=== PATIENT | female | born 1960 | race Caucasian/White ===

== ENCOUNTER 2023-08-25 22:05 | Inpatient (IN) | payer OTHER, SELFPAY ==
[2023-08-25] VITALS (17 sets, daily range): BP systolic 94–141; BP diastolic 46–97; PULSE 70–92; BMI 26.6
[2023-08-25] MEDS: MORPHINE SULFATE 4 MG IV (16:47)
[2023-08-25] MEDS: ZOFRAN 4 MG IV (16:47)
[2023-08-25 16:54] LABS: % Basophils 0.3 % (0-2); % Eosinophils 0.1 % (0-6); % Immature Granulocytes 0.5 % (0-0.5); % Lymphocytes 6.5 % (20.5-51.1); % Monocytes 6.2 % (1.7-9.3); % Neutrophils 86.4 % (42.2-75.2); Absolute Basophils 0.1 10^3/uL (0-0.2); Absolute Immature Granulocytes 0.1 10^3/uL (0-0.05); Absolute Lymphocytes 1.2 10^3/uL (1.2-3.4); Absolute Monocytes 1.2 10^3/uL (0.1-0.6); Absolute Neutrophils 16.2 10^3/uL (1.4-6.5); Hematocrit 45.5 % (37.0-47.0); Hemoglobin 15.8 g/dL (12.0-16.0); Mean Corp Hgb Conc. 34.7 g/dL (33.0-37.0); Mean Corpuscular Hgb 31.7 pg (27.0-31.0); Mean Corpuscular Volume 91.4 fL (81.0-99.0); Mean Platelet Volume 9.8 fL (7.4-10.4); Nucleated Red Blood Cells % 0 %; Platelet Count 314 10^3/uL (130-400); Red Blood Cell Count 4.98 10^6/uL (4.20-5.40); Red Cell Dist. Width 12.7 % (11.5-14.5); White Blood Cell Count 18.7 10^3/uL (4.8-10.8)
--- NOTE | 2023-08-25 17:03 | ED.GENMED ---
History of Present Illness
General
Chief Complaint: Chest Pain
Source: patient and spouse
Exam Limitations: none
Time Seen by Provider: 08/25/23 16:21
Travel History
Have you had any contact with someone who has COVID-19?: No
Do you have any symptoms of coronavirus? Fever > 100 degrees, chills, cough, shortness of breath, sore throat, loss of taste or smell, muscle aches, or headache?: No
History of Present Illness
History of Present Illness:
63-year-old female who presents with severe chest pain. The patient states it is sharp and in the middle and radiates to her back and neck. The pain is making her take shallow breaths as it hurts worse when she takes a deep breath. The pain
suddenly started at noon. Patient states she feels short of breath only because she cannot take a deep breath without severe pain. Patient has no history of coronary disease. She is a former smoker. She has a history of hypertension
hyperlipidemia. She had eaten food in the morning but had not eaten anything within a few hours of the onset of her pain. She then drove to someone's house and had made some food but she had had severe pain. No vomiting, did recently travel to
[place]. No leg swelling.
Past History
Past History
ED Past Medical History: HTN and Hypercholesterolemia
ED Past Surgical History: Gynecological
Social History
Tobacco: Former smoker
Phy Exam
Physical Exam
Physical Exam:
CONSTITUTIONAL Patient alert and oriented to person, place and time. Moderate pain distress. Vital signs reviewed.
HEAD atraumatic, normocephalic.
EYES eyelids normal to inspection, Extraocular muscles intact, Conjunctiva normal, Sclera normal.
NECK normal range of motion, Trachea midline, no jugular venous distention.
RESPIRATORY CHEST No respiratory distress noted, Chest expansion equal, Bilateral breath sounds clear. Splinting noted during exam. No crepitus.
CARDIOVASCULAR regular rate and rhythm, Heart sounds normal.
ABDOMEN abdomen nontender, Bowel sounds normal. No distention.
BACK normal inspection, no obvious deformities
UPPER EXTREMITY range of motion normal, Motor strength normal, no cyanosis, no edema.
LOWER EXTREMITY range of motion normal, Motor strength normal, no cyanosis, no edema.
NEURO Speech normal, No focal motor deficits, [place] coma scale 15, Memory normal, Cranial Nerves intact to screening exam.
SKIN skin warm, dry, and normal in color.
PSYCHIATRIC patient oriented to person place and time, Normal affect.
Scores
Heart Score for Chest Pain Patients
STEMI patient?: No
History: Slightly or Non-Suspicious
ECG: Nonspecific Repolarization
Age: >45 - <65 years
Risk Factors: 1 or 2 Risk Factors
Troponin: </= Normal Limit
Heart Score for Chest Pain Patients: 3
Heart Score Risk: 2.5% MACE over next 6 weeks
Course
Orders/Labs/Results
Orders:
Orders
08/25/23 16:19
Electrocardiogram (*1) Urgent
Reason for Study: Chest Pain
Cardiac Monitoring- Treatment ONCE
EKG- Treatment ONCE
IV Insert/Care/Rem.- Treatment PRN
O2 Therapy [RESP] Urgent
Titrate/Wean O2 to maintain O2 sat greater than (%): 90
Special Instructions: Maintain sats >/=90%
Pulse Ox/spot Check [RESP] Urgent
Quantity: 1
Special Instructions: ON ROOM AIR
08/25/23 16:25
Morphine Sulfate 4 mg .ROUTE .STK-MED ONE
Ondansetron Injectable [Zofran] 4 mg .ROUTE .STK-MED ONE
08/25/23 16:27
CR Chest Portable - 1 View Urgent
Comment:
Reason For Exam: cp
Reason Study Needs to be Portable: Patient Unstable
08/25/23 16:28
Complete Blood Count/With Diff Urgent
Comprehensive Metabolic Panel Urgent
Lipase Urgent
Comment: ADD ON
Troponin I Urgent
08/25/23 16:44
Morphine Sulfate 4 mg IV NOW STA
Ondansetron Injectable [Zofran] 4 mg IV NOW STA
08/25/23 16:45
Add On- LAB Stat
Tests Added?: lipase
CT Angio Chest/Abd W/Wo Iv Contrast [CT Chest/abd Angio W/wo Iv Con] Stat
Comment:
Reason For Exam: cp to back and neck
08/25/23 17:50
Ketorolac [Toradol] 15 mg IV NOW STA
Sucralfate Suspension [Carafate Suspension] 1 gm PO NOW STA
08/25/23 19:32
NT-proBNP Stat
Comment: ADD ON
Troponin I Stat
08/25/23 19:36
Electrocardiogram (*1) Urgent
Reason for Study: Chest Pain
EKG- Treatment ONCE
08/25/23 19:42
Add On- LAB Urgent
Tests Added?: pro bnp
08/25/23 19:47
Ipratropium/Albuterol Sulfate [Duoneb] 3 ml .ROUTE .ST-MED ONE
08/25/23 19:49
Dexamethasone Sod Phosphate [Decadron] 10 mg IV NOW STA
Ipratropium/Albuterol Sulfate [Duoneb] 3 ml INH R NOW STA
08/25/23 20:53
Admit/Transfer Patient As Directed
Co-Sign Provider:
Level of Care: Inpatient admission
Assign to:: Telemetry
Physician / Group: Gómez
Diagnosis: Pericarditis / COPD Exac
Reason for Telemetry: Chest Pain syndromes
Date to Stop Telemetry: 08/27/23
Time to Stop Telemetry: 11:00
Reason for Hospitalization: Hypoxemia, COPD, Pericarditis
Expected length of stay greater than two midnights?: Yes
ELOS- Estimated Length of Stay in days: 3
I certify the patient meets the requirements for IP care: Yes
08/25/23 20:54
Code Status As Directed
Resuscitation Status: Full Code
08/25/23 21:16
COVID-19 Antigen Urgent
Source: Nasal Swab
Influenza A+B Rapid Molecular Urgent
DEBBI Source: Nasal Swab
Specimen Description:
08/25/23 22:43
0.9% Sodium Chloride 1000 ml [Nss] 1,000 ml IV 100 mls/hr
Acetaminophen [Tylenol] 650 mg PO Q4HPRN PRN
Albuterol Nebs [Ventolin Nebules] 2.5 mg INH R Q4HPRN PRN
Dexamethasone Sod Phosphate [Decadron] 4 mg IV Q8H
Ketorolac [Toradol] 15 mg IV Q6HPRN PRN
Ondansetron Injectable [Zofran] 4 mg IV Q6HPRN PRN
08/25/23 22:43
Echo 2D MMode Doppler [Echo 2D MMode Color/Doppler] Routine
Reason for Study: Pericarditis
Activity As Directed
Activity Level: Ambulate
With Assistance
EKG with chest pain [ECG as needed] As Directed
ECG as needed for:: Chest Pain
I/O [Intake/ Output] As Directed
Frequency: Per unit guidelines
Orthostatic Vital Signs As Directed
Orthostatic VS Frequency: BID
Pneumatic Compression Sleeves As Directed
Type: Knee high
Vital Signs As Directed
Frequency: Per unit guidelines
Weight As Directed
Frequency: Daily
Oxygen Therapy [O2 Therapy] [RESP] Routine
Titrate/Wean O2 to maintain O2 sat greater than (%): 94
Rx Incentive Spirometry [RESP] Routine
Frequency: q1h while awake
DX Deep Vein Thrombosis Video Routine
08/25/23 23:19
CRP [C-Reactive Protein] Routine
ESR [Erythrocyte Sed Rate] Routine
TSH Reflex To Free T4 Routine
Troponin I Q6H
08/26/23 05:12
Basic Metabolic Panel IN AM
Complete Blood Count/No Diff IN AM
Troponin I Q6H
08/26/23 06:00
EKG [Electrocardiogram (*1)] IN AM
Reason for Study: Chest Pain
Regular
At Your Request: Full Participation
Does patient need a safe tray?: No
08/26/23 08:00
Aspirin Chewable [Low Strength Aspirin] 81 mg PO DAILY
Colchicine 0.6 mg PO DAILY
Ipratropium/Albuterol Sulfate [Duoneb] 3 ml INH R QID
Levothyroxine [Synthroid] 175 mcg PO DAILY
Pantoprazole [Protonix] 40 mg PO DAILY
08/26/23 10:43
Troponin I Q6H
08/26/23 18:00
Atorvastatin [Lipitor] 20 mg PO QPM
08/27/23 11:00
DC Protocol for Telemetry ONCE
Abnormal Lab Results
08/25/23
16:28
WBC 18.7 H 10^3/uL
(4.8-10.8)
MCH 31.7 H pg
(27.0-31.0)
Abs Immat Gran (auto) 0.1 H 10^3/uL
(0-0.05)
Absolute Neuts (auto) 16.2 H 10^3/uL
(1.4-6.5)
Absolute Monos (auto) 1.2 H 10^3/uL
(0.1-0.6)
Neutrophils % 86.4 H %
(42.2-75.2)
Lymphocytes % 6.5 L %
(20.5-51.1)
Carbon Dioxide 31 H mmol/L
(22-30)
Glucose 120 H mg/dl
(70-99)
08/25/23 16:28
08/25/23 16:28
Vital Signs
Initial and Last Documented VS:
Initial Vital Signs
BP
135/49
08/25/23 16:17
Last Documented Vital Signs
Temp Pulse Resp BP Pulse Ox
98.4 F 62 16 136/69 91
08/26/23 03:00 08/26/23 03:00 08/26/23 03:00 08/26/23 03:00 08/26/23 03:00
MDM/Problems Addressed
MDM/Problems Addressed:
Chest pain, possible pericarditis
*Radiology
Radiology exam reviewed: radiology read reviewed and all reviewed NAD by ED Provider (Chest x-ray)
*Pulse Oximetry
Patient hypoxic: no
*EKG
Interpreted by ED Provider?: Yes
Interpretation: abnormal
Rate: normal
Rhythm: sinus and other (PACs with bigeminy)
Ischemia: non-specific ST changes
*Commodity Industry Analyst Interpretation
Rate: normal
Interpretation: abnormal
Rhythm: sinus and PAC's
*Critical Care Note
Total Time (30-74mins, 75-104mins- exclusive of procedures): 45 minutes
Data Reviewed
Source: patient and significant other
Prescriptions/Medications Considered But Not Given:
Consider nitroglycerin but given the pleuritic nature of the pain I do not suspect ACS.
Patient Management
Discussion with other providers: [employer] Program Associate (Case discussed with radiology. CTA ordered. He will evaluate for dissection and PE)
Escalation/DeEscalation of care consider admission/obs:
63-year-old female presents with severe acute pain when she took a deep breath. Patient does admit that pain was much worse when she laid flat or saddle going forward. CT negative for dissection. Negative for PE. EKG nonischemic troponin
negative. Will repeat troponin. However, question pericarditis. No obvious EKG findings to suggest that but given the trace pericardial effusion and pleuritic pain worse with certain positions could consider it. If repeat troponin is negative
the patient prefers outpatient management. Will advise NSAIDs and outpatient PCP follow-up if troponin
ED Attending Note
-
Portions of this chart may have been created with voice recognition software.� Occasional wrong word or��sound alike� substitutions may have occurred due to the inherent limitations of voice recognition software.
Discharge Plan
Departure
Patient Disposition: Admit
Date of Disposition: 08/25/23
Time of Disposition: 19:50
Admit to: Telemetry
Presentation/result/management discussed w/ accepting MD/DO: Hospitalist
Patient with high blood pressure during this ER visit?: No
Condition: Fair
Discharge Problem:
Acute exacerbation of chronic obstructive pulmonary disease, Chest pain, possible pericarditis, Hypoxia
Interventions
Interventions:
*Risk Screen - Suicide Last Done: 08/25/23 23:14
*General Assessment Last Done: 08/25/23 16:16
ED- Fall Risk Assessment Last Done: 08/25/23 16:24
*ED COVID-19 Vaccine History Last Done: 08/25/23 16:17
*Nursing Disposition Last Done: 08/25/23 22:46
ED- Cardiac Assessment Last Done: 08/25/23 16:23
Discharge Date and Time
Discharge Date/Time: 08/25/23 22:48
[2023-08-25 17:37] LABS: ALT (SGPT) 23 U/L (0-35); AST (SGOT) 25 U/L (14-36); Albumin 4.3 g/dl (3.5-5.0); Alkaline Phosphatase 109 U/L (38-126); Blood Urea Nitrogen 16 mg/dl (7-17); Calcium 9.9 mg/dl (8.4-10.2); Carbon Dioxide 31 mmol/L (22-30); Chloride 98 mmol/L (98-107); Estimated Creatinine Clearance 83 ml/min; Glucose 120 mg/dl (70-99); Lipase 63 U/L (23-300); Potassium 4.1 mmol/L (3.5-5.1); Sodium 135 mmol/L (135-145); Total Protein 7.1 g/dl (6.3-8.2); eGFR > 60.00
[2023-08-25 17:48] LABS: Troponin I < 0.012 ng/ml
[2023-08-25] MEDS: TORADOL 15 MG IV (17:55)
[2023-08-25] MEDS: CARAFATE SUSPENSION 1 GM PO (17:56)
[2023-08-25] MEDS: DUONEB 3 ML INH (19:53)
[2023-08-25] MEDS: DECADRON 10 MG IV (19:54)
[2023-08-25 20:02] LABS: Troponin I < 0.012 ng/ml
[2023-08-25 20:52] LABS: NT-proBNP 334 pg/ml
--- NOTE | 2023-08-25 20:58 | HPS.HSE ---
Family Physician
-
Family Physician: Dc Davis
Chief Complaint
-
Chest Pain / SOB
History of Present Illness
Patient is a 63y F with PMH significant for hypertension and dyslipidemia who presents to ED complaining of chest pain and SOB. Patient states that symptoms started around noon today with sense of shortness of breath. Patient states that she
developed central chest pain that was sharp and radiated to the back and the neck. Pain was worse with breathing or movement and patient states that she felt more SOB as she was unable to take a deep breath. Her symptoms progressed throughout the
afternoon and she presented to the ED for further evaluation.
Patient denies any prior history of similar symptoms. She denies any recent symptoms of cough, sore throat, fevers / chills, etc.
In the ED, patient is noted to be diaphoretic and hypoxemic on evaluation.
She has significant smoking history but stopped smoking in 2011. She does not have a formal diagnosis of COPD.
Medical History
Past Medical History
Past Medical History: Reports Other
Additional Past Medical History:
Hypertension
Dyslipidemia
Hypothyroidism
Diverticular Disease
Past Surgical History: Reports Other
Additional Past Surgical History:
BRAN
Sigmoidectomy
Social History
Tobacco: Former Smoker (Quit smoking in 2011. Approx 40 pack years total use.)
Alcohol: Occasional
Family History
Family History: Other (Father: CAD, CVA Mother: HTN)
Allergies / Home Medications
Allergies reflects when Allergies were last updated in GitHub.
Home Medications with original date entered in GitHub
Allergy/Medication List:
Allergies
Allergy/AdvReac Type Severity Reaction Status Date / Time
Penicillins Allergy Hives Verified 08/25/23 16:17
Home Medications
aspirin 81 mg chewable tablet 81 mg PO DAILY 08/25/23
atorvastatin 20 mg tablet 20 mg PO QPM 08/25/23
calcium carbonate 600 mg-vitamin D3 5 mcg (200 unit) tablet 1 tab PO BID 08/25/23
levothyroxine 175 mcg tablet 175 mcg PO DAILY 08/25/23
multivitamin 1 tab PO DAILY 08/25/23
naproxen 500 mg tablet 500 mg PO BID PRN Pain 08/25/23
omega 4-bmb-grs-fish oil 1,200 mg (144 mg-216 mg) capsule (Fish Oil) 1 cap PO DAILY 08/25/23
triamterene 37.5 mg-hydrochlorothiazide 25 mg capsule 0.5 cap PO DAILY 08/25/23
Review of Systems
-
History Source: Patient
A 12 point ROS was completed and negative except as noted: Yes
Constitutional: Reports Fatigue; Denies Fever or Chills
EENT: Denies Sore Throat
Respiratory: Reports Trouble Breathing; Denies Cough or Hemoptysis
Cardiac: Reports Chest Pain and Diaphoresis; Denies Palpitations or Syncope
Abdomen/GI: Reports Nausea; Denies Abdominal Pain, Vomiting, Diarrhea or Constipated
: Denies Dysuria, Frequency or Flank Pain
Musculoskeletal: Denies Joint Pain or Edema
Neurological: Denies Dizzy or Headache
Psych: Denies Depression or Anxiety
Physical Exam
Vital Signs
Vital Signs
Temp Pulse Resp BP Pulse Ox
98.0 F 86 23 94/60 98
08/25/23 16:22 08/25/23 20:15 08/25/23 20:15 08/25/23 20:00 08/25/23 20:15
Physical Exam
General: Other (63y F in mild distress due to dyspnea / pain. Pos diaphoretic.)
HEENT: Moist mucous membranes and PERRLA
Respiratory: Other (Decreased BS throughout with expiratory wheezes. No focal rales / rhonchi.)
Cardiac: S1/S2 and Regular Rhythm; No Murmur
GI: Soft, Non Tender, Non Distended and Normal Bowel Sounds
Musculoskeletal: No Clubbing, No Cyanosis and No Edema
Neuro: AO x 3
Laboratory Results
-
08/25/23 16:28
08/25/23 16:28
Laboratory Results
Total Bilirubin 1.0 mg/dl (0.2-1.3) 08/25/23 16:28
AST 25 U/L (14-36) 08/25/23 16:28
ALT 23 U/L (0-35) 08/25/23 16:28
Alkaline Phosphatase 109 U/L (38-126) 08/25/23 16:28
Troponin I < 0.012 ng/ml 08/25/23 19:32
Lipase 63 U/L (23-300) 08/25/23 16:28
Impression/Plan
-
A/P: Patient is a 63y F with PMH significant for HTN and smoking history who presents to ED complaining of chest pain and SOB.
COPD with Acute Exacerbation v Viral Bronchitis / Reactive Airways Disease
Acute Hypoxemic Respiratory Failure secondary to the above
- Admit for further evaluation and treatment.
- Suspect viral etiology as trigger for the above.
- CT imaging with PE, dissection, infiltrate, etc.
- Continue supplemental O2 and wean as able.
- IV steroids for COPD / wheezing.
- Nebs ATC and PRN.
- Pulm evaluation.
- Follow for clinical improvement.
Pericarditis
- Central chest pain - worse with movement / breathing and EKG changes c/w pericarditis.
- Anti-inflammatories with IV steroids given concurrent COPD / wheezing as noted above.
- Colchicine once daily for now.
- Check Echo.
- Check ESR / CRP / etc.
- Again, likely viral trigger.
Benign Hypertension
- BP on the low side in the ED.
- Hold Dyazide and monitor.
Hypothyroidism
- Stable. Continue T4 supplementation.
- Update TFTs.
DVT Prophylaxis: SCDs
Code Status: Full
[2023-08-25 21:50] LABS: COVID-19 Antigen Negative (Negative)
[2023-08-25] MEDS: NSS 1000 IV (23:05)
[2023-08-25] MEDS: DECADRON 4 MG IV (23:05)
[2023-08-26] VITALS (9 sets, daily range): BP systolic 107–144; BP diastolic 56–73; PULSE 50–112; BMI 26.5
[2023-08-26 00:07] LABS: Troponin I < 0.012 ng/ml
[2023-08-26 00:30] LABS: TSH Reflex To Free T4 0.02 uIU/ml (0.47-4.68)
[2023-08-26 00:34] LABS: Erythrocyte Sed Rate 9 mm/hour (0-20)
[2023-08-26 00:59] LABS: Free T4 1.96 ng/dl (0.78-2.19)
--- NOTE | 2023-08-26 01:21 | PTCARENOTE ---
Pt arrived onto floor @2250. Able to walk into room without assistance; vital signs stable. Pt oriented to room and call araiza, will continue to monitor.
[2023-08-26 05:25] LABS: Hematocrit 38.5 % (37.0-47.0); Hemoglobin 13.5 g/dL (12.0-16.0); Mean Corp Hgb Conc. 35.1 g/dL (33.0-37.0); Mean Corpuscular Volume 88.3 fL (81.0-99.0); Mean Platelet Volume 9.4 fL (7.4-10.4); Platelet Count 235 10^3/uL (130-400); Red Blood Cell Count 4.36 10^6/uL (4.20-5.40); Red Cell Dist. Width 12.4 % (11.5-14.5); White Blood Cell Count 15.5 10^3/uL (4.8-10.8)
[2023-08-26] MEDS: DECADRON 4 MG IV (05:44)
[2023-08-26 05:47] LABS: Blood Urea Nitrogen 20 mg/dl (7-17); Calcium 9.2 mg/dl (8.4-10.2); Carbon Dioxide 31 mmol/L (22-30); Chloride 97 mmol/L (98-107); Estimated Creatinine Clearance 83 ml/min; Glucose 158 mg/dl (70-99); Sodium 132 mmol/L (135-145); eGFR > 60.00
[2023-08-26 05:52] LABS: Troponin I < 0.012 ng/ml
[2023-08-26] MEDS: DUONEB 3 ML INH ×4 (07:41→21:08)
[2023-08-26] MEDS: SYNTHROID 175 MCG PO (08:03)
[2023-08-26] MEDS: LOW STRENGTH ASPIRIN 81 MG PO (08:03)
[2023-08-26] MEDS: PROTONIX 40 MG PO (08:03)
[2023-08-26] MEDS: COLCHICINE 0.599999999999999978 MG PO ×2 (08:03→22:08)
[2023-08-26] MEDS: NSS 1000 IV ×2 (08:06→18:58)
--- NOTE | 2023-08-26 08:48 | W.PN.HOSP.TC ---
Today's Communication/Plan
-
Stop steroids
Cardiology consult
Echocardiogram
Continue colchicine
Wean oxygen
Assessment / Plan
Assessment / Plan
Gen-AAOx3, NAD
HEENT-NC, AT, anicteric, clear oral mm
Neck-supple
CV-reg, no M, +S1/S2
Lungs-clear B/L
Abd-soft, NT, ND
Ext-no edema
Musculoskeletal-no cyanosis, clubbing
Skin-warm and dry
Neuro-grossly non-focal
Psych-calm, cooperative
Acute hypoxic respiratory failure -likely due to acute pericarditis related atelectasis, chest splinting. No wheezing on exam today. Doubt COPD exacerbation. Wean oxygen as able. CT chest negative for pulmonary embolism. Was on 5 L nasal
cannula oxygen last night, now on 2 L. Wean down as able. Discussed with nursing and respiratory.
Acute pericarditis -unknown etiology. Denies any recent illnesses. Continue colchicine. Check echocardiogram. Consult cardiology. Troponins negative.
Clinically doubt COPD exacerbation. She did have transient wheezing yesterday but did not feel it. No wheezing today. Suspect she was splinting and had atelectasis related to pain with deep breathing from pericarditis. Can discontinue steroids.
Given smoking history, refer to pulmonary after discharge for further evaluation of possible COPD. CT chest does show emphysematous changes in the lungs. No evidence of pneumonia or pneumothorax. Can hold off on pulmonary consult currently.
Hyponatremia -sodium 132 today. Check urine studies.
Essential hypertension -stable.
Hyperlipidemia -on atorvastatin.
Hypothyroidism -continue Synthroid. Free T4 normal, TSH 0.02, likely sick euthyroid syndrome. Would recheck as an outpatient.
Diverticulosis
Full code
Dispo -suspect she can go home tomorrow after echocardiogram if stable.
Anticipated Discharge: Within 24 hours
Subjective/Interval History
-
Date of Service: August 26, 2023
Patient seen and examined. States chest pain has resolved. Feeling much better. Denies shortness of breath.
Objective Data
-
Labs:
Laboratory Results
08/26/23
05:12
WBC 15.5 H
Hgb 13.5
Hct 38.5
Plt Count 235 D
Sodium 132 L
Potassium 4.0
Chloride 97 L
Carbon Dioxide 31 H
BUN 20 H
Creatinine 0.6
Glucose 158 H
Calcium 9.2
Vital Signs:
Vital Signs
Temp Pulse Resp BP Pulse Ox
98.3 F 44 16 123/61 96
08/26/23 07:00 08/26/23 07:46 08/26/23 07:46 08/26/23 07:00 08/26/23 07:46
I&O
08/25/23 08/26/23 08/27/23
06:59 06:59 06:59
Intake Total 1180 / 1180
Balance 1180 / 1180
Review of Systems
-
History Source: Patient
All other systems: Reviewed and negative
--- NOTE | 2023-08-26 11:57 | CON.CAR ---
Consultation
Consultation Request
Date/Time Consultation Requested: 08/26/21 7:00 AM
Date/Time Consultation Performed: 08/26/21 11:45 AM
Requesting Provider: Dr Thibodeaux
Performing Provider: Dr Piña
Reason for Consultation: chest pain
Medical History
-
Chief Complaint: chest pain
History of Present Illness:
63-year-old female with past medical history of hypertension, hyperlipidemia, and hypothyroidism presents to [facility] with chest pains and shortness of breath. She was in her usual state of health when yesterday at about noon she started
getting a severe chest tightening sensation. She was also markedly short of breath. The symptoms seem worse with positional changes such as moving her head or leaning forward. The pain did radiate to her back. It was moderate to severe in
severity. She came to the emergency room where morphine did not help the symptoms. Anti-inflammatory medicine did seem to help. She currently feels better and is pain-free overnight. She had RSV in the fall but had no recent viral infections.
She denies any orthopnea, PND, or edema. She has no palpitations, dizziness, or syncope.
Past Medical History
Past Medical History: HTN, Hypercholesterolemia and Hypothyroidism
Past Surgical History: Bowel Resection and Other (BRAN)
Social History
Tobacco: Former Smoker (14-jvxw-ejte history quit 2011)
Alcohol: Occasional
Drug: None
Personal:
Living: With Family
Employment: Employed
Family History
Family History: CAD
Allergies / Home Medications
Allergy/AdvReac Type Severity Reaction Status Date / Time
Penicillins Allergy Hives Verified 08/25/23 16:17
Medication Instructions Recorded Confirmed Type
aspirin 81 mg chewable tablet 81 mg PO DAILY Blood Clot 08/25/23 08/25/23 History
Prevention/Tx
atorvastatin 20 mg tablet 20 mg PO QPM High Cholesterol 08/25/23 08/25/23 History
calcium carbonate 600 mg-vitamin 1 tab PO BID Supplement 08/25/23 08/25/23 History
D3 5 mcg (200 unit) tablet
levothyroxine 175 mcg tablet 175 mcg PO DAILY Thyroid 08/25/23 08/25/23 History
multivitamin 1 tab PO DAILY Supplement 08/25/23 08/25/23 History
naproxen 500 mg tablet 500 mg PO BID PRN Pain 08/25/23 08/25/23 History
omega 0-wey-hni-fish oil 1,200 mg 1 cap PO DAILY Supplement 08/25/23 08/25/23 History
(144 mg-216 mg) capsule (Fish Oil)
triamterene 37.5 0.5 cap PO DAILY Fluid 08/25/23 08/25/23 History
mg-hydrochlorothiazide 25 mg Retention/Swelling
capsule
Review of Systems
-
History Source: Patient
Constitutional: Fatigue
EENT: No Symptoms
Respiratory: Trouble Breathing
Cardiac: Chest Pain
Abdomen/GI: No Symptoms
: No Symptoms
Musculoskeletal: No Symptoms
Skin: No Symptoms
Neurological: No Symptoms
Endocrine: No Symptoms
Hematologic/Lymphatic: No Symptoms
Physical Exam
Vital Signs
Temp Pulse Resp BP Pulse Ox
97.8 F 50 18 107/57 92
08/26/23 11:00 08/26/23 11:25 08/26/23 11:25 08/26/23 11:00 08/26/23 11:25
Lab Results
08/26/23 05:12
08/26/23 05:12
Troponin I Cancelled 08/26/23 10:43
Yjh-X-[id number] Pept 334 pg/ml 08/25/23 19:32
Physical Exam
General: Well Developed and Well Nourished
HEENT: Normocephalic and Anicteric
Respiratory: Clear and Non Labored Respirations
Cardiac: S1/S2, Regular Rhythm and Rub (no clear rub/murmur)
GI: Soft, Non Tender and Non Distended
Genito-urinary: No Costovertebral Tender
Musculoskeletal: No Cyanosis and No Edema
Skin: Warm and Dry
Neuro: AO x 3
Psych: Calm
Impression / Plan
-
Assess:
Chest pains possible pericarditis
Hypertension
Hyperlipidemia
Hypothyroidism
Hyponatremia
Possible COPD
Elevated CRP with normal sed rate
CT scan of the chest with contrast August 25, 2023, no pulmonary embolism or aortic dissection, emphysematous lung changes with no evidence of pneumonia
EKG with diffuse ST and T wave abnormalities and mild ST elevation consistent with possible pericarditis
Plan:
She presents with chest pains and shortness of breath. CT scan reveals no pulmonary embolism or aortic dissection. There is also no signs of pneumonia.
Her clinical scenario does suggest possible pericarditis. Will treat with colchicine 0.6mg po q12. Okay to continue Naprosyn 500 mg p.o. twice daily for 1 week as well.
Will check echo in AM.
Blood pressure on the low side with some hyponatremia. Agree with holding Dyazide for now.
Data Reviewed
-
EKG: Report Reviewed by me
CT Scan: Report Reviewed by me
Labs: Labs Reviewed by me
Old Records: Reviewed
--- NOTE | 2023-08-26 14:11 | CM ---
manager audio reviewed patient's chart and met with patient and patient lives with spouse in a 2 story home, patient is independent with adl's and ambulation, no dme, patient drives, patient did not require oxygen prior to admission. Patient has a
prescription plan and patient uses [facility].
PCP: Dr. Dc Davis
Plan; Home when stable, no needs.
[2023-08-26] MEDS: LIPITOR 20 MG PO (16:34)
[2023-08-26 16:54] LABS: Osmolality Urine 611 mOsm/kg (300-900)
[2023-08-26 17:00] LABS: Urine Sodium < 5 mmol/L (30-90)
[2023-08-26] MEDS: NAPROSYN 500 MG PO (22:08)
[2023-08-27 03:20] VITALS: BP 117/60
[2023-08-27] MEDS: NSS 1000 IV (05:25)
[2023-08-27 06:00] VITALS: BMI 27.0
[2023-08-27] MEDS: SYNTHROID 175 MCG PO (07:22)
[2023-08-27] MEDS: NAPROSYN 500 MG PO (07:22)
[2023-08-27] MEDS: LOW STRENGTH ASPIRIN 81 MG PO (07:22)
[2023-08-27] MEDS: PROTONIX 40 MG PO (07:22)
[2023-08-27] MEDS: COLCHICINE 0.599999999999999978 MG PO (07:22)
[2023-08-27 07:30] LABS: % Basophils 0.2 % (0-2); % Immature Granulocytes 0.6 % (0-0.5); % Lymphocytes 4.8 % (20.5-51.1); % Neutrophils 87.4 % (42.2-75.2); Absolute Immature Granulocytes 0.1 10^3/uL (0-0.05); Absolute Lymphocytes 0.8 10^3/uL (1.2-3.4); Absolute Monocytes 1.2 10^3/uL (0.1-0.6); Absolute Neutrophils 15.1 10^3/uL (1.4-6.5); Hematocrit 37.6 % (37.0-47.0); Hemoglobin 12.9 g/dL (12.0-16.0); Mean Corp Hgb Conc. 34.3 g/dL (33.0-37.0); Mean Corpuscular Hgb 30.9 pg (27.0-31.0); Mean Platelet Volume 10.2 fL (7.4-10.4); Nucleated Red Blood Cells % 0 %; Platelet Count 196 10^3/uL (130-400); Red Blood Cell Count 4.18 10^6/uL (4.20-5.40); Red Cell Dist. Width 13.2 % (11.5-14.5); White Blood Cell Count 17.2 10^3/uL (4.8-10.8)
[2023-08-27 07:49] LABS: Blood Urea Nitrogen 21 mg/dl (7-17); Calcium 9.1 mg/dl (8.4-10.2); Carbon Dioxide 30 mmol/L (22-30); Chloride 103 mmol/L (98-107); Estimated Creatinine Clearance 93 ml/min; Glucose 103 mg/dl (70-99); Potassium 4.6 mmol/L (3.5-5.1); Sodium 138 mmol/L (135-145); eGFR > 60.00
[2023-08-27 07:51] VITALS: BP 151/68
[2023-08-27] MEDS: DUONEB 3 ML INH (08:10)
--- NOTE | 2023-08-27 09:07 | W.PN.HOSP.TC ---
Today's Communication/Plan
-
discharge today
Assessment / Plan
Assessment / Plan
Acute hypoxic respiratory failure -likely due to acute pericarditis related atelectasis, chest splinting. No wheezing on exam today. Doubt COPD exacerbation. Wean oxygen as able. CT chest negative for pulmonary embolism. Was on 5 L nasal
cannula oxygen, now 96 % on RA. Continue IS use
Acute pericarditis -unknown etiology. Denies any recent illnesses. Appreciate cardiology input, recommend naproxen 500 mg twice a day for 1 week, colchicine 0.6 mg twice a day for 90 days. Echocardiogram reviewed. Cleared by cardiology for
discharge today. Follow-up with cardiology in the office. Clinically doubt COPD exacerbation. No wheezing. Suspect she was splinting and had atelectasis related to pain with deep breathing from pericarditis. Can discontinue steroids.
Given smoking history, refer to pulmonary after discharge for further evaluation of possible COPD. CT chest does show emphysematous changes in the lungs. No evidence of pneumonia or pneumothorax. Can hold off on pulmonary consult currently.
Hyponatremia -resolved, sodium 138 today
Essential hypertension -stable.
Hyperlipidemia -on atorvastatin.
Hypothyroidism -continue Synthroid. Free T4 normal, TSH 0.02, likely sick euthyroid syndrome. Would recheck as an outpatient.
Diverticulosis
Physical Exam
General: No acute distress
HEENT: Normocephalic, Atraumatic, EOMI, MMM
Respiratory: Clear to Auscultation bilaterally
Cardiac: Normal S1/S2, Regular Rate and Rhythm
GI: Soft, Nontender, Nondistended, Normal Bowel Sounds
Extremities: No Clubbing, Cyanosis, or Edema
Neuro: Nonfocal/Grossly Intact
Psych: Calm, Cooperative
Derm: No Visible lesions
Anticipated Discharge: Today
Subjective/Interval History
-
Date of Service: August 27, 2023
Denies chest pain, denies shortness of breath. No fever.
Objective Data
-
Labs:
Laboratory Results
02/26/24
06:19
WBC 17.2 H
Hgb 12.9
Hct 37.6
Plt Count 196
Sodium 138
Potassium 4.6
Chloride 103
Carbon Dioxide 30
BUN 21 H
Creatinine 0.5 L
Glucose 103 H
Calcium 9.1
Vital Signs:
Vital Signs
Temp Pulse Resp BP Pulse Ox
98 F 97 16 151/68 94
08/27/23 07:51 08/27/23 08:12 08/27/23 08:12 08/27/23 07:51 08/27/23 08:12
I&O
08/26/23 08/27/23 08/28/23
06:59 06:59 06:59
Intake Total 1180 / 1180 2099
Balance 1180 / 1180 2099
--- NOTE | 2023-08-27 11:05 | CM ---
Chart reviewed and plan is to home with spouse when stable.
Plan; Home with spouse when stable.
--- NOTE | 2023-08-27 11:28 | W.PN.CARDCBS ---
Addendum entered and electronically signed by Melquiades Greene DO 08/27/23 12:58:
I saw and examined the patient.
The Hydro Generation Manager's note was reviewed and I agree with the note.
Comment:
Plan:
Cont colchicine 0.6 mg BID for 3 months.
She takes Naprosyn and will take 500 mg BID for 1 week back to prn for OA
Echo unremarkable with EF preserved, no significant valvular disease and no pericardial effusion.
Outpatient follow-up to be arranged.
Stable for discharge from cardiac standpoint.
Original Note:
Today's Communication / Plan
-
Continue Colchicine 0.6mg po q12 x 3 months Continue Naprosyn 500 mg p.o. twice daily for 1 week, then prn for arthritis
Echo unremarkable
ECG stable
Outpatient cardiology follow up arranged, stable from D/c
T/c outpt pulmonary evaluation
Impression / Plan
-
Family Physician:� Dc Davis
Assess:
Presented 08/25/2023 with chest pain, SOB
Chest pains consistent with pericarditis
Hypertension
Hyperlipidemia
Hypothyroidism
Hyponatremia
Possible COPD on CT chest
Elevated CRP with normal sed rate
CT scan of the chest with contrast August 25, 2023, no pulmonary embolism or aortic dissection, emphysematous lung changes with no evidence of pneumonia
EKG with diffuse ST and T wave abnormalities and mild ST elevation consistent with possible pericarditis
Echo 08/27/2023: EF 60-65%, no significant valve disease. No pericardial effusion.
Plan:
She presented 08/25/2023 with chest pains and shortness of breath. CT scan reveals no pulmonary embolism or aortic dissection. There is also no signs of pneumonia. ECG concerning for acute pericarditis.
Acute Pericarditis with abnormal ECG on presentation with WBC 18.7, CRP 46.50, ESR 9. Troponin x 4 negative
Symptoms have resolved and she has been CP free for last 24 hours with addition of Colchicine and Naproxen (which she takes for arthritis pain prn).
Continue Colchicine 0.6mg po q12 x 3 months Okay to continue Naprosyn 500 mg p.o. twice daily for 1 week as well. Then resume prior prn dosing for arthritis
Repeat ECG 08/27/2023 Sinus rhythm with frequent PACs in atrial bigeminy pattern and improved ST changes
Echo 08/27/2023 shows normal LV function, no significant valve disease. No pericardial effusion.
Blood pressure initially low but now hypertensive after holding Dyazide. Sodium improved 138. Can resume. Consider BMP in 2 weeks as outpt
TSH 0.02 with free T4 1.96. Treatment per primary team
Concern for emphysema on CT. History of tobacco abuse. Would likely benefit from follow up with pulmonary with PFT's as outpatient.
HPI 08/26/2023:
63-year-old female with past medical history of hypertension, hyperlipidemia, and hypothyroidism presents to [facility] with chest pains and shortness of breath.� She was in her usual state of health when yesterday at about noon she started
getting a severe chest tightening sensation.� She was also markedly short of breath.� The symptoms seem worse with positional changes such as moving her head or leaning forward.� The pain did radiate to her back.� It was moderate to severe in
severity.� She came to the emergency room where morphine did not help the symptoms.� Anti-inflammatory medicine did seem to help.� She currently feels better and is pain-free overnight.� She had RSV in the fall but had no recent viral infections.�
She denies any orthopnea, PND, or edema.� She has no palpitations, dizziness, or syncope.
Progress Note - Roller Bearing Inspector
Subjective
Date of Service: August 27, 2023
Patient seen and examined. Feeling well, ambulating around the unit without chest pain or SOB. Eager to go home.
Objective
Labs:
08/27/23 06:19
08/27/23 06:19
Labs
Hgb 12.9 g/dL (12.0-16.0) 08/27/23 06:19
Hct 37.6 % (37.0-47.0) 08/27/23 06:19
Plt Count 196 10^3/uL (130-400) 08/27/23 06:19
Sodium 138 mmol/L (135-145) 08/27/23 06:19
Potassium 4.6 mmol/L (3.5-5.1) 08/27/23 06:19
BUN 21 mg/dl (7-17) H 08/27/23 06:19
Creatinine 0.5 mg/dL (0.6-1.0) L 08/27/23 06:19
Glucose 103 mg/dl (70-99) H 08/27/23 06:19
Troponins
08/25/23 08/25/23 08/25/23
16:28 19:32 23:19
Troponin I < 0.012 < 0.012 < 0.012
08/26/23 08/26/23
05:12 10:43
Troponin I < 0.012 Cancelled
Vital Signs and I&O:
Vital Signs
Temp Pulse Resp BP Pulse Ox
98 F 97 16 151/68 94
08/27/23 07:51 08/27/23 08:12 08/27/23 08:12 08/27/23 07:51 08/27/23 08:12
Vital Signs
Temp Pulse Resp BP Pulse Ox
98 F 97 16 151/68 94
08/27/23 07:51 08/27/23 08:12 08/27/23 08:12 08/27/23 07:51 08/27/23 08:12
Intake & Output
08/25/23 08/26/23 08/27/23 08/28/23
06:59 06:59 06:59 06:59
Intake Total 1180 / 1180 2099 / 2099
Balance 1180 / 1180 2099 / 2099
Physical Exam
Physical Exam
GEN: No distress, awake, Ox3
HEENT: supple, anicteric, mmm
LUNGS: diminished BS bilaterally, no wheezes/rales
CV: Reg, S1/S2, no murmur, rubs or gallops
ABD: soft, BS+, NT/ND
EXT: No edema, clubbing or cyanosis
NEURO: Gross non-focal
SKIN: No rash,w arm, dry
[2023-08-27 11:41] VITALS: BP 145/60
[2023-08-27 11:42] VITALS: BP 138/68; BP 145/60; BP 158/67; PULSE 51
[2023-08-27] MEDS: DUONEB INH ×2 (12:33→15:29)
--- NOTE | 2023-08-27 12:51 | W.DCSUMMARY ---
Discharge Summary
Discharge Data
Date of Admission: 08/25/23
Date of Discharge: 08/27/23
-
Pending Results: No
Hospital Course
Discharge diagnosis:
Acute hypoxic respiratory failure
Acute pericarditis
Hyponatremia
Essential hypertension
Hyperlipidemia
Hypothyroidism
Diverticulosis
Consults: cardiology
Chest CTA:
No pulmonary embolism.
No thoracic or abdominal aortic aneurysm or dissection.
Trace pericardial effusion. No pleural effusion. No pneumothorax.
Emphysematous lung changes. No evidence of pneumonia.
Mild degenerative disc space narrowing with minor endplate osteophyte formation throughout the thoracic spine. No vertebral compression deformity. No osseous central canal stenosis.
Mild diverticulosis. No evidence of acute diverticulitis.
No pancreatic or peripancreatic inflammatory changes. There is slight prominence of the main pancreatic duct, measuring up to 4 mm. Nonspecific. Recommend correlation with pancreatic enzymes.
No obstructive uropathy.
Normal appendix.
Echo:
Normal left ventricular size, wall thickness and systolic function. No regional
�wall motion abnormalities are seen. LV ejection fraction is 60-65%.
�No significant valvular disease.
�No pericardial effusion.
�No prior study available for comparison.
Hospital course:
63-year-old female the past medical history of hypertension and former smoking presents with chest pain and shortness of breath. Her chest pain was worse with movement and breathing, her EKG showed ST elevation in the anterior leads, consistent
with pericarditis. Troponins were negative.
Patient will started on colchicine and naproxen. She was seen in conjunction with cardiology. Echocardiogram was unremarkable. She denies any recent viral infections. It is unclear the reason for her pericarditis.
Patient initially required 5 L of oxygen. This is due to her chest pain causing shallow inspiration and atelectasis. Her hypoxia resolved with treatment of her pericarditis and using the incentive spirometer.
Patient does have a history of smoking. She was referred to pulmonology for outpatient PFTs.
After several days, her chest pain and shortness of breath resolved. She is medically stable and cleared by cardiology for discharge. Cardiology recommends colchicine 0.6 mg twice a day for 3 months, and naproxen 500 mg twice a day for 7 days.
She needs to follow-up with cardiology in the office as scheduled, as well as her primary care doctor in 1 week.
Disposition: Home self-care
Discharge plan: Required 34 minutes
Discharge Plan
-
Patient Disposition: Home (Routine Discharge)
Discharge Diagnosis/Procedures: Acute pericarditis
Condition: Fair
Diet: Low Cholesterol
Driving Restrictions: As prior to admission
Instructions: Pericarditis, Adult (DC)
Referrals:
Avila Brown MD [Active] - in two to three weeks
Derrick Piña MD [Active] - 09/26/23 11:20 am (You have follow up cardiology appointment with Dr. Piña on September 25 at 11:20 am at the [facility] in [place] in [address]. If you are unable to make this appointment
please call [phone] to reschedule)
Dc Davis MD [Family Provider] - in one day
Prescriptions:
New
colchicine 0.6 mg Tablet
0.6 mg PO BID 90 Days Qty: 180 0RF
naproxen 500 mg Tablet
500 mg PO BID 7 Days Qty: 14 0RF
Continued
multivitamin Tablet
1 tab PO DAILY
levothyroxine 175 mcg Tablet
175 mcg PO DAILY
atorvastatin 20 mg Tablet
20 mg PO QPM
calcium carbonate-vitamin D3 600 mg-5 mcg (200 unit) Tablet
1 tab PO BID
aspirin 81 mg Tablet,Chewable
81 mg PO DAILY
omega 4-bug-ewz-fish oil [Fish Oil] 1,200 (144-216) mg Capsule
1 cap PO DAILY
triamterene-hydrochlorothiazid 75-50 mg Tablet
0.5 tab PO DAILY
Discontinued
naproxen 500 mg Tablet
500 mg PO BIDPRN PRN (Reason: mild pain)
Discharge Orders:
Discharge Patient (As Directed); Ordered 08/27/23
Ordered By: Royce Gardner
Discharge Date and Time
Discharge Date/Time: 08/27/23 15:48
== END 2023-08-27 15:48 | disposition home or self-care (01) | DRG 314 ==
LOC: 4 WEST ACU 22:05
PROVIDERS: Hospitalist; ADMITTING PHYSICIAN Hospitalist; ATTENDING PHYSICIAN Family Medicine; EMERGENCY PHYSICIAN Emergency Medicine; FAMILY PHYSICIAN Family Medicine; OTHER PHYSICIAN Internal Medicine Cardiovascular Disease
DX: I30.9 Acute pericarditis, unspecified (principal); J96.01 Acute respiratory failure with hypoxia; J44.1 Chronic obstructive pulmonary disease with (acute) exacerbation; E87.1 Hypo-osmolality and hyponatremia; J98.11 Atelectasis; E07.81 Sick-euthyroid syndrome; E03.9 Hypothyroidism, unspecified; K57.90 Diverticulosis of intestine, part unspecified, without perforation or abscess without bleeding; I10 Essential (primary) hypertension; E78.00 Pure hypercholesterolemia, unspecified; Z87.891 Personal history of nicotine dependence; Z79.82 Long term (current) use of aspirin; Z79.890 Hormone replacement therapy; Z11.52 Encounter for screening for COVID-19; Z88.0 Allergy status to penicillin
CPT/HCPCS: 71045; 71275; 74175; 80048; 80053; 83690; 83880; 83935; 84300; 84439; 84443; 84484; 85025; 85027; 85652; 86140; 87502; 87811; 93005; 93306; 94640; 96374; 96375; 99291; Q9967

== ENCOUNTER 2023-09-11 06:10 | Emergency (ER) | payer OTHER, SELFPAY ==
[2023-09-11 06:23] VITALS: BP 148/78
--- NOTE | 2023-09-11 07:05 | ED.GENMED ---
History of Present Illness
<Josie Herrera NP - Last Filed: 09/11/23 15:53>
General
Chief Complaint: Chest Pain
Source: patient
Exam Limitations: none
Time Seen by Provider: 09/11/23 07:04
Nursing documentation reviewed up to this point in time: agreed with
Travel History
Have you had any contact with someone who has COVID-19?: No
Do you have any symptoms of coronavirus? Fever > 100 degrees, chills, cough, shortness of breath, sore throat, loss of taste or smell, muscle aches, or headache?: No
History of Present Illness
History of Present Illness:
63-year-old female with history of HTN, HLD, hypothyroid, presents stating she has left mid upper chest pressure radiating up into the anterior aspect of her neck. It started yesterday at 12 noon as she was sitting at her computer doing work at
home. She first developed a headache and a 'funny sensation' in my throat. The pain is worst with deep breaths and movement. Sitting still helps the pain. She feels she cannot take a deep breath due to the pain. Her last naproxen was at 10 PM
last night, her last colchicine was at 7 AM today.
Her colchicine was recently decreased to once a day from twice a day due to stomach issues, diarrhea, nausea and she was placed on Pepcid AC for the past 2 days and feels better.
She states that during her last visit the steroid helped here pain but morphine did not help at all. Denies fever or chills, denies N/V/D/C.
Did not sleep well during the night due to the pain and feeling like she cannot take a deep breath, was laying in a reclining chair
Admitted 08/25 to 08/27/2023 for acute hypoxic respiratory failure, acute pericarditis, hyponatremia she was discharged on colchicine 0.6 mg twice a day for 3 months and naproxen 500 mg twice a day for 7 days., Echocardiogram was unremarkable. She
was to follow-up with cardiology and her PCP. She does have a history of smoking and was referred to pulmonary oncology for outpatient PFTs.
Past History
<Josie Herrera, CONSTRUCTION ENGINEER - Last Filed: 09/11/23 15:53>
Past History
ED Past Medical History: HTN, Hypercholesterolemia, Hypothyroidism and Other (Pericarditis)
ED Past Surgical History: Gynecological
Social History
Tobacco: Former smoker
Alcohol: Occasional
Personal:
Living: with family
Employment: Employed
Review of Systems
<Josie Herrera, CONSTRUCTION ENGINEER - Last Filed: 09/11/23 15:53>
Review of Systems
Allergies reviewed?: Yes
All Other Systems: ROS reviewed and negative except as documented in HPI and ROS
Constitutional: Denies fever or chills
Respiratory: Reports trouble breathing; Denies cough
Cardiac: Reports chest pain
ABD/GI: Denies abdominal pain, nausea, vomiting or diarrhea
: Denies dysuria or difficulty voiding
Musculoskeletal: Reports no symptoms
Skin: Reports no symptoms
Neurological: Reports no symptoms
Phy Exam
<Josie Herrera, CONSTRUCTION ENGINEER - Last Filed: 09/11/23 15:53>
Physical Exam
Physical Exam:
GENERAL: No acute distress. A&Ox3.
CONSTITUTIONAL: Afebrile.
EYES: Clear, conjunctivae normal
ENMT: moist mucus membranes, Pharynx nl
RESPIRATORY: Regular respirations, nonlabored, lungs clear.
CARDIOVASCULAR: Regular rate and rhythm, no murmurs, no rubs.
GI: Soft, nontender, normal BS
MUSCULOSKELETAL: Moves with ease. Well perfused.
SKIN: Warm, dry, pink
PSYCH: Normal mood and affect. Well kept, interactive and appropriate
NEUROLOGIC: Awake, alert and oriented. No focal neurological deficits
Scores
<Josie Herrera, CONSTRUCTION ENGINEER - Last Filed: 09/11/23 15:53>
Heart Score for Chest Pain Patients
STEMI patient?: Not applicable
Course
<Josie Herrera NP - Last Filed: 09/11/23 15:53>
Orders/Labs/Results
Orders:
Orders
09/11/23 06:11
Electrocardiogram (*1) Urgent
Reason for Study: Chest Pain
EKG- Treatment ONCE
09/11/23 07:27
CMP [Comprehensive Metabolic Panel] Urgent
Complete Blood Count/With Diff Urgent
Sed Rate [Erythrocyte Sed Rate] Urgent
Troponin I Urgent
09/11/23 08:44
Ketorolac [Toradol] 15 mg IV NOW STA
Abnormal Lab Results
09/11/23
07:27
WBC 13.6 H 10^3/uL
(4.8-10.8)
MCH 31.1 H pg
(27.0-31.0)
Abs Immat Gran (auto) 0.1 H 10^3/uL
(0-0.05)
Absolute Neuts (auto) 11.8 H 10^3/uL
(1.4-6.5)
Absolute Lymphs (auto) 0.6 L 10^3/uL
(1.2-3.4)
Absolute Monos (auto) 1.0 H 10^3/uL
(0.1-0.6)
Neutrophils % 86.9 H %
(42.2-75.2)
Lymphocytes % 4.3 L %
(20.5-51.1)
BUN 20 H mg/dl
(7-17)
Creatinine 0.5 L mg/dL
(0.6-1.0)
Glucose 117 H mg/dl
(70-99)
09/11/23 07:27
09/11/23 07:27
Vital Signs
Initial and Last Documented VS:
Initial Vital Signs
Temp Pulse Resp BP Pulse Ox
97.8 F 110 24 148/78 92
09/11/23 06:23 09/11/23 06:23 09/11/23 06:23 09/11/23 06:23 09/11/23 06:23
Last Documented Vital Signs
Temp Pulse Resp BP Pulse Ox
97.8 F 98 22 118/72 93
09/11/23 06:23 09/11/23 10:00 09/11/23 10:00 09/11/23 09:00 09/11/23 09:45
<Alvino Mckinney, DO - Last Filed: 09/11/23 09:24>
Orders/Labs/Results
Orders:
Orders
09/11/23 06:11
Electrocardiogram (*1) Urgent
Reason for Study: Chest Pain
EKG- Treatment ONCE
09/11/23 07:27
CMP [Comprehensive Metabolic Panel] Urgent
Complete Blood Count/With Diff Urgent
Sed Rate [Erythrocyte Sed Rate] Urgent
Troponin I Urgent
09/11/23 08:44
Ketorolac [Toradol] 15 mg IV NOW STA
Abnormal Lab Results
09/11/23
07:27
WBC 13.6 H 10^3/uL
(4.8-10.8)
MCH 31.1 H pg
(27.0-31.0)
Abs Immat Gran (auto) 0.1 H 10^3/uL
(0-0.05)
Absolute Neuts (auto) 11.8 H 10^3/uL
(1.4-6.5)
Absolute Lymphs (auto) 0.6 L 10^3/uL
(1.2-3.4)
Absolute Monos (auto) 1.0 H 10^3/uL
(0.1-0.6)
Neutrophils % 86.9 H %
(42.2-75.2)
Lymphocytes % 4.3 L %
(20.5-51.1)
BUN 20 H mg/dl
(7-17)
Creatinine 0.5 L mg/dL
(0.6-1.0)
Glucose 117 H mg/dl
(70-99)
09/11/23 07:27
09/11/23 07:27
Vital Signs
Initial and Last Documented VS:
Initial Vital Signs
Temp Pulse Resp BP Pulse Ox
97.8 F 110 24 148/78 92
09/11/23 06:23 09/11/23 06:23 09/11/23 06:23 09/11/23 06:23 09/11/23 06:23
Last Documented Vital Signs
Temp Pulse Resp BP Pulse Ox
97.8 F 98 22 118/72 93
09/11/23 06:23 09/11/23 10:00 09/11/23 10:00 09/11/23 09:00 09/11/23 09:45
<Josie Herrera CONSTRUCTION ENGINEER - Last Filed: 09/11/23 15:53>
MDM/Problems Addressed
Differential Diagnosis Includes:
ACS, pericarditis, pleurisy, GERD
MDM/Problems Addressed:
63-year-old female with history of HTN, HLD, hypothyroid, presents stating she has left mid upper chest pressure radiating up into the anterior aspect of her neck. It started yesterday at 12 noon as she was sitting at her computer doing work at
home. She first developed a headache and a 'funny sensation' in my throat. The pain is worst with deep breaths and movement. Sitting still helps the pain. She feels she cannot take a deep breath due to the pain. Her last naproxen was at 10 PM
last night, her last colchicine was at 7 AM today.
Her colchicine was recently decreased to once a day from twice a day due to stomach issues, diarrhea, nausea and she was placed on Pepcid AC for the past 2 days and feels better.
She states that during her last visit the steroid helped here pain but morphine did not help at all. Denies fever or chills, denies N/V/D/C.
Did not sleep well during the night due to the pain and feeling like she cannot take a deep breath, was laying in a reclining chair
Admitted 08/25 to 08/27/2023 for acute hypoxic respiratory failure, acute pericarditis, hyponatremia she was discharged on colchicine 0.6 mg twice a day for 3 months and naproxen 500 mg twice a day for 7 days., Echocardiogram was unremarkable. She
was to follow-up with cardiology and her PCP. She does have a history of smoking and was referred to pulmonary oncology for outpatient PFTs.
EKG: Sinus tachycardia with left axis deviation
09/11/2023 0836 AM
CBC: WBC 13.6
CMP: BUN 20 otherwise normal
Troponin within normal limits
ESR normal
Dr. Mckinney in to evaluate, patient is requesting steroids as they helped her pain in the past
Joint Cleaning Machine Operator Dr. Roa notified of today's visit and request to move patient's follow-up visit up from 10/15 which he did and she has a 09/25 appointment.
He does not want pt on steroids as they are not indicated for pericarditis and can make it worse. Pt informed and ok with this.
She will try Ibuprofen since the Naproxen isn't helping. She will continue cholchecine and will take her Pepcid BID as there may be an element of GERD, no indication of pericarditis in workup today.
<Josie Herrera, CONSTRUCTION ENGINEER - Last Filed: 09/11/23 15:53>
*EKG
EKG Intrepretation Date: 09/11/23
Interpretation: abnormal
Rate: tachycardiac
Rhythm: sinus
Crenshaw: left axis deviation
Interval: normal interval
QRS Pattern: normal QRS
Ischemia: no ischemia
*Critical Care Note
Total Time (30-74mins, 75-104mins- exclusive of procedures): Not Applicable
ED Attending Note
<Josie Herrera CONSTRUCTION ENGINEER - Last Filed: 09/11/23 15:53>
-
Portions of this chart may have been created with voice recognition software.� Occasional wrong word or��sound alike� substitutions may have occurred due to the inherent limitations of voice recognition software.
<Alvino Mckinney DO - Last Filed: 09/11/23 09:24>
ED Attending Note
Patient seen and examined by attending physician: Yes
I performed the substantive portion of visit, reviewed & personally made and approve the management plan that is documented in note by myself or KENYON.: Yes
ED Attending Note:
I have seen and evaluated the patient with a [id number] encounter. I have spoken to the advance practicer provider and involved in the medical history, the physical exam, medical decision making.
Evaluation and management service: agree unless noted differently below.
Results interpretation: agree unless noted differently below.
Focused HPI: 63-year-old female presenting back to the emergency department chest pain. Patient states it feels like pericarditis again. She was recently admitted and diagnosed with pericarditis and had negative Including CTA chest and
echocardiogram. Troponins were negative and symptoms resolved. Patient is worried because the pain came back and was unrelieved with naproxen
Physical exam: Sitting in bed comfortably. Lungs clear. Heart regular rate and rhythm. No friction rub noted. No leg edema or unilateral tenderness
Medical Decision Making: Patient is a steroids helped the most last time. Will discuss case with cardiology and likely placed on steroid taper until she can see cardiology as an outpatient. Patient is very comfortable with this plan. Doubt ACS
given negative troponin. Tachycardia resolved and symptoms resolving with Toradol. Doubt PE
Discharge Plan
Departure
Patient Disposition: Home (Routine Discharge)
Date of Disposition: 09/11/23
Time of Disposition: 09:47
Patient with high blood pressure during this ER visit?: No
Condition: Good
Discharge Problem:
Atypical chest pain
Instructions: Chest Pain That Is Not Caused by the Heart (DC), Acid Reflux and GERD in Adults (DC)
Prescriptions:
No Action
multivitamin Tablet
1 tab PO DAILY
levothyroxine 175 mcg Tablet
175 mcg PO DAILY
atorvastatin 20 mg Tablet
20 mg PO QPM
calcium carbonate-vitamin D3 600 mg-5 mcg (200 unit) Tablet
1 tab PO BID
aspirin 81 mg Tablet,Chewable
81 mg PO DAILY
omega 6-thv-crl-fish oil [Fish Oil] 1,200 (144-216) mg Capsule
1 cap PO DAILY
triamterene-hydrochlorothiazid 75-50 mg Tablet
0.5 tab PO DAILY
colchicine 0.6 mg Tablet
0.6 mg PO BID 90 Days Qty: 180 0RF
naproxen 500 mg Tablet
500 mg PO BID 7 Days Qty: 14 0RF
Referrals:
Derrick Piña MD [Active] - Keep scheduled appt
Dc Davis MD [Family Provider] -
Stand Alone Forms: Return to Work
Activity Restrictions/Additional Instructions:
Your appointment with Cardiology is scheduled for 09/25 appointment. Someone from the office will call to remind you
He does not want you on steroids as they are not indicated for pericarditis
Try Ibuprofen since the Naproxen isn't helping. Continue Cholchecine and take Pepcid (10 or 20 mg) twice a day as there may be an element of reflux/GERD, no indication of pericarditis in workup today.
Interventions
Interventions:
*Risk Screen - Suicide Last Done: 09/11/23 06:23
*General Assessment Last Done: 09/11/23 07:07
*Neglect/Abuse Screening Last Done: 09/11/23 06:23
ED- Fall Risk Assessment Last Done: 09/11/23 07:07
*ED COVID-19 Vaccine History Last Done: 09/11/23 07:07
*Nursing Disposition Last Done: 09/11/23 10:03
ED- Cardiac Assessment Last Done: 09/11/23 07:07
Discharge Date and Time
Discharge Date/Time: 09/11/23 10:04
[2023-09-11 07:07] VITALS: BMI 25.9
[2023-09-11 07:11] VITALS: BP 130/85
[2023-09-11 07:25] VITALS: BP 122/75
[2023-09-11 07:47] LABS: % Basophils 0.5 % (0-2); % Eosinophils 0.3 % (0-6); % Immature Granulocytes 0.4 % (0-0.5); % Lymphocytes 4.3 % (20.5-51.1); % Monocytes 7.6 % (1.7-9.3); % Neutrophils 86.9 % (42.2-75.2); Absolute Basophils 0.1 10^3/uL (0-0.2); Absolute Immature Granulocytes 0.1 10^3/uL (0-0.05); Absolute Lymphocytes 0.6 10^3/uL (1.2-3.4); Absolute Neutrophils 11.8 10^3/uL (1.4-6.5); Hematocrit 43.8 % (37.0-47.0); Hemoglobin 15.4 g/dL (12.0-16.0); Mean Corp Hgb Conc. 35.2 g/dL (33.0-37.0); Mean Corpuscular Hgb 31.1 pg (27.0-31.0); Mean Corpuscular Volume 88.5 fL (81.0-99.0); Mean Platelet Volume 10.2 fL (7.4-10.4); Nucleated Red Blood Cells % 0 %; Platelet Count 317 10^3/uL (130-400); Red Blood Cell Count 4.95 10^6/uL (4.20-5.40); Red Cell Dist. Width 12.2 % (11.5-14.5); White Blood Cell Count 13.6 10^3/uL (4.8-10.8)
[2023-09-11 08:00] VITALS: BP 117/70
[2023-09-11 08:02] LABS: ALT (SGPT) 27 U/L (0-35); AST (SGOT) 25 U/L (14-36); Albumin 4.2 g/dl (3.5-5.0); Alkaline Phosphatase 110 U/L (38-126); Blood Urea Nitrogen 20 mg/dl (7-17); Carbon Dioxide 28 mmol/L (22-30); Chloride 102 mmol/L (98-107); Estimated Creatinine Clearance 83 ml/min; Glucose 117 mg/dl (70-99); Sodium 136 mmol/L (135-145); Total Bilirubin 0.9 mg/dl (0.2-1.3); Total Protein 6.8 g/dl (6.3-8.2); eGFR > 60.00
[2023-09-11 08:05] LABS: Troponin I < 0.012 ng/ml
[2023-09-11 08:45] LABS: Erythrocyte Sed Rate 16 mm/hour (0-20)
[2023-09-11] MEDS: TORADOL 15 MG IV (08:47)
[2023-09-11 09:00] VITALS: BP 118/72
== END 2023-09-11 10:04 | disposition home or self-care (01) ==
LOC: EMR 06:10
PROVIDERS: Emergency Medicine; EMERGENCY PHYSICIAN Student in an Organized Health Care Education/Training Program; FAMILY PHYSICIAN Family Medicine
DX: R07.89 Other chest pain (principal); I10 Essential (primary) hypertension; E78.00 Pure hypercholesterolemia, unspecified; E03.9 Hypothyroidism, unspecified; Z87.891 Personal history of nicotine dependence
CPT/HCPCS: 99283; 96374; 80053; 84484; 85025; 85652; 93005